=== PATIENT | female | born 1930 | race Caucasian/White ===

== ENCOUNTER → 2017-03-06 | Outpatient (CLI) | payer MEDICARE, BC ==
[~2017-03-06] MED LIST: AMIODARONE HCL100 MG PO; ASPIRIN PO; ASPIRIN81 M2 PO; CALCIUM 500 + D1 TAB PO; CARVEDILOL3.125 MG PO; COMBIVENT INH14.7 G1 INH; CORDARONE200 M1 PO; COREG12.5 MG PO; COUMADIN3 MG PO; COUMADIN5 MG PO; DIOVAN HCT 160/1 TAB PO; DUONEB 2.5-0.5 M3 ML NEB; EVISTA60 MG PO; FISH OIL 1,0001 CA2 PO; FISH OIL 1,0001 CAP PO; FISH OIL 1,0001 EAC3 PO; FOSAMAX PO; FOSAMAX70 MG PO; LEVOTHYROXINE50 MCG PO; LIPITOR40 MG PO; LOPRESSOR PO; LOSARTAN POTASS50 MG PO; LOSARTAN-HCTZ1 EAC2 PO; LOTREL 10/20 MG1 CAP PO; MULTI VITAMIN1 EACH PO; MULTI-VITAMIN1 TAB PO; OXYGEN; OYSTER CALCIUM500 MG PO; OYSTER SHELL C500 MG PO; PRILOSEC PO; PRILOSEC20 M1 PO; PRILOSEC20 MG PO; SIMVASTATIN40 MG PO; SYMBICORT INH; VYTORIN 10/40 T1 TAB PO; ZOCOR PO
--- NOTE | ~2017-03-06 | MY11 ---
[facility] A Service of [facility] RADIOLOGY TEXT RESULTS PATIENT: FABY WYMAN LOCATION: [facility] : [birth year] UNIT #: [id number] AGE: [address]: Deanne Harris MD SEX: F ORDER DR: [id number] [address] [address] [id number] O MR#: [id number] Acc #: [id number] NAME: FABY WYMAN : 1930 SEX: F STUDY DATE/TIME: 03/06/2017 9:33 UNIT: [facility] ROOM: STUDY DESCRIPTION: MY Mammogram Screening Dig Raghav Attending Physician: Deanne Harris M.D. Referring Physician: Deanne Harris M.D. Ordering Physician: Deanne Harris M.D. Primary Care Physician: Deanne Harris M.D. MEDICAL IMAGING REPORT This report is preliminary unless electronic signature is present. EXAM Bilateral digital screening mammogram with CAD. INDICATION Routine screening. No current complaints. No family history of breast cancer. COMPARISON 02/28/2016, 03/31/2014, 04/07/2013. FINDINGS MLO and CC digital views of each breast were obtained. The study was reviewed with an FDA-approved device. There are scattered fibroglandular densities present. There are no masses or diffuse calcifications. There is a somewhat nodular area in the medial left breast that is stable from old exams dating back to at least 2013. IMPRESSION No change. No evidence of malignancy. Patient's over the age of 40 are entered into a reminder system with target due date for the next mammogram. BIRADS: 1 Negative. Dictated by... Chavez Reese M.D. THIS IS AN ELECTRONICALLY VERIFIED REPORT Chavez Reese M.D. at 03/06/2017 3:17 PM [facility] A Service of [facility] RADIOLOGY TEXT RESULTS PATIENT: FABY WYMAN LOCATION: [facility] : [birth year] UNIT #: [id number] AGE: [address]: Deanne Harris MD SEX: F ORDER DR: Stephanie TD: 03/06/2017 13:35 JOB #: [id number] MEDICAL IMAGING REPORT Page 1 of 1
== END | disposition home or self-care (01) ==
LOC: SMAM 09:00
DX: Z12.31 Encounter for screening mammogram for malignant neoplasm of breast (principal)
CPT/HCPCS: G0202